=== PATIENT | male | born 1955 | race Hispanic/Latino ===

== ENCOUNTER 2023-01-10 08:17 | Day surgery (SDC) | payer OTHER ==
[2023-01-05 13:29] LABS: BASOPHILS # (AUTO) 0.03 K/uL (0.00-0.20); BASOPHILS % (AUTO) 0.4 % (0.0-5.0); EOSINOPHILS # (AUTO) 0.15 K/uL (0.00-0.70); EOSINOPHILS % (AUTO) 2.1 % (0.0-8.0); HEMATOCRIT 38.6 % (42-54); IMMATURE GRANULOCYTE ABSOLUTE 0.02 K/uL (0-1); LYMPHOCYTES # (AUTO) 1.2 K/uL (1.0-4.8); LYMPHOCYTES % (AUTO) 17.2 % (21.0-51.0); MEAN CORPUSCULAR HEMOGLOBIN 30.8 pg (27.0-33.0); MEAN CORPUSCULAR HGB CONC 32.6 g/dL (32.0-36.0); MEAN CORPUSCULAR VOLUME 94.4 fL (79-99); MONOCYTES # (AUTO) 0.6 K/uL (0.1-1.0); MONOCYTES % (AUTO) 8.5 % (3.0-13.0); NEUTROPHILS # (AUTO) 5.1 K/uL (1.8-7.7); NEUTROPHILS % (AUTO) 71.5 % (40.0-77.0); PLATELET COUNT (AUTO) 245 K/uL (130-400); RED BLOOD CELL COUNT(AUTO) 4.09 MIL/uL (4.50-6.20); RED CELL DISTRIBUTION WIDTH 13.3 % (11.0-15.5); WHITE BLOOD COUNT (AUTO) 7.1 K/uL (4.8-10.8)
[2023-01-05 13:45] VITALS: BP_SYST 95; BP_SYST 97; BP_DIAS 55; BP_DIAS 61; PULSE 57; RESP 18
[2023-01-05 13:49] LABS: INR 1.03 (0.85-1.15); PROTHROMBIN TIME 11.9 SEC (9.6-11.6)
[2023-01-05 13:51] LABS: PARTIAL THROMBOPLASTIN TIME 41.3 SEC (26.3-35.5)
[2023-01-05 13:52] LABS: CREATININE 1.7 mg/dL (0.5-1.5); POTASSIUM 4.8 mmol/L (3.5-5.1)
[2023-01-10] VITALS (10 sets, daily range): BP systolic 97–138; BP diastolic 49–71; PULSE 68–83; RESP 12–19
[~2023-01-10] VITALS: Ht 162.6 cm; Wt 75.7 kg
[~2023-01-10 08:17] MED LIST: AMLO-257 PO; APIX5TAB PO; ATOR20TA65 PO; BACL10TA PO; FAMO20TA8 PO; FURO20TA4 PO; MECL-226 PO; METO-391 PO; TAMS-1 PO; VALS40TA11 PO
[2023-01-10] MEDS ORDERED: 0.9%NACL 1000ML 1,000 ML IV ONE (08:37)
[2023-01-10] MEDS ORDERED: LIDOCAINE HCL 400MG/20ML VIAL ONE (12:27)
[2023-01-10] MEDS ORDERED: IOHEXOL 350 MG/ML 100ML INFUS..BTL IV ONE (12:28)
[2023-01-10] MEDS ORDERED: HEPARIN 10,000 UNIT/10ML (1,000 UNIT/ML) VIAL ONE (12:28)
[2023-01-10] MEDS ORDERED: VERAPAMIL HCL 2.5 MG/ML VIAL ONE (12:28)
[2023-01-10] MEDS ORDERED: FENTANYL CITRATE PF 50 MCG/1 ML 2ML VIAL ONE (13:03)
[2023-01-10] MEDS ORDERED: MIDAZOLAM HCL 1 MG/ML 2ML VIAL ONE ×2 (13:04→13:07)
[2023-01-10] MEDS ORDERED: NITROGLYCERIN 50MG VIAL ONE (13:17)
[2023-01-10] MEDS ORDERED: IOHEXOL-350 50ML VIAL IV ONE (13:44)
[2023-01-10] MEDS ORDERED: GLUCAGON 1MG KIT 1 MG ML IM PRN (14:30)
[2023-01-10] MEDS ORDERED: DEXTROSE 50%-WATER 50 ML DISP.SYRIN IV PRN (14:30)
[2023-01-10] MEDS ORDERED: 0.9%NACL 1000ML 1,000 ML IV SCH (14:30)
== END 2023-01-10 18:15 | disposition home or self-care (01) ==
LOC: DAH 08:17
PROVIDERS: ATTEND Student in an Organized Health Care Education/Training Program
DX: I25.119 Atherosclerotic heart disease of native coronary artery with unspecified angina pectoris (principal); E78.5 Hyperlipidemia, unspecified; I10 Essential (primary) hypertension; K21.9 Gastro-esophageal reflux disease without esophagitis; I48.0 Paroxysmal atrial fibrillation; Z98.890 Other specified postprocedural states; Z82.49 Family history of ischemic heart disease and other diseases of the circulatory system; Z79.01 Long term (current) use of anticoagulants; Z79.899 Other long term (current) drug therapy
CPT/HCPCS: 80048; 83880; 85025; 85610; 85730; 36415; 71045; 93005; 93458; C1769; C1887; C1894; A4649; J3010; J3490 ×3; J7030; J1644 ×2; J2250; Q9967; A4215; A4222; A4221; A4663; A4216; A4606; Q9965 ×2; A4223 ×3; 99156; 99157